=== PATIENT | male | born 1990 | race Caucasian/White ===

== ENCOUNTER 2018-08-10 14:04 | Emergency (ER) | payer MEDICAID ==
[~2018-08-10] VITALS: Ht 162.6 cm; Wt 64.7 kg
[2018-08-10 14:11] VITALS: BP 128/77; PULSE 68; RESP 16; Ht 162.6 cm; Wt 64.7 kg
[2018-08-10] MEDS ORDERED: KETOROLAC 30 MG INJ IM STA (16:24)
--- NOTE | 2018-08-10 16:42 | ERD ---
ER Documentation Chief Complaint Chief Complaint lower back pain x 3 days HPI Patient is a 28-year-old otherwise healthy Citizen [place] speaking male who presents to the ED with 4 days of right lower back pain. Patient states pain started when he was walking up the stairs and has been constant since then. Pain is describ ed as throbbing, nonradiating. He does report a history of lower back pain secondary to a lifting injury a few months ago. He states today's pain is similar however more intense. He has been doing physical therapy at home which seems to be improving his pain but does not take any medications. He denies any recent injury or fall to his back. Denies any saddle anesthesia. Denies any numbness, tingling, focal weakness of the bilateral extremities. Denies any loss of bowel or bladder control. Denies fever or chills. He is otherwise ambulatory without any other complaints. ROS All systems reviewed and are negative except as per history of present illness. Medications Home Meds Active Scripts Ibuprofen* (Ibuprofen*) 600 Mg Tablet, 600 MG PO Q6 for pain, #30 TAB Prov:FLORENCIO MOREJON PA-C 08/10/18 Discontinued Scripts Prednisone* (Prednisone*) 20 Mg Tab, 40 MG PO DAILY for 4 Days, TAB Prov:MANUEL ESCOBAR MD 08/10/18 Tramadol HCl (Tramadol HCl) 50 Mg Tablet, 50 MG PO Q4 PRN for PAIN, #20 TAB Prov:MANUEL ESCOBAR MD 08/10/18 Ibuprofen* (Motrin*) 600 Mg Tab, 600 MG PO Q6, #30 TAB Prov:MANUEL ESCOBAR MD 08/10/18 Allergies Allergies: Coded Allergies: No Known Allergy (Unverified , 08/10/18) PMhx/Soc Medical and Surgical Hx: pt denies Medical Hx, pt denies Surgical Hx Hx Alcohol Use: No Hx Substance Use: No Hx Tobacco Use: No Smoking Status: Never smoker Physical Exam Vitals Vital Signs Date Temp Pulse Resp B/P (MAP) Pulse Ox O2 O2 Flow FiO2 Time Delivery Rate 08/10/18 98.0 68 16 128/77 99 14:11 (94) Physical Exam Const: No acute distress Head: Atraumatic Neck: Full range of motion. No meningismus. Abd: Soft, non tender, non distended. Normal bowel sounds Skin: No petechiae or rashes Back: No midline or flank tenderness. + Right paraspinal thoracic tenderness. + Straight leg raise on the right. BLE reflexes 2+. Motor strength 5/5. Sensation is grossly intact. Ext: No cyanosis, or edema. Full ROM of all extremities. Neur: Awake and alert Psych: Normal Mood and Affect Results 24 hrs Current Medications Medications Dose Sig/Sen Start Time Status Last (Trade) Ordered Route PRN Stop Time Admin Dose Reason Admin Ketorolac 30 mg ONCE STAT 08/10/18 DC 08/10/18 Tromethamine IM 16:24 16:38 (Toradol) 08/10/18 16:25 Procedures/[facility] EMERGENT LABS AND DIAGNOSTIC STUDIES: Nursing Notes Reviewed. Previous Medical Records requested via the Electronic Health Record. EMERGENCY DEPARTMENT COURSE / MEDICAL DECISION MAKING: Patient is a 28-year-old male with history of back pain presents to the ED with exacerbation of his chronic back pain 4 days ago. Patient has no neurological deficits on physical exam. He was treated with IM Toradol with much improvement of his pain. Symptoms are likely musculoskeletal in nature. I recommended patient continue with physical therapy exercises at home, I also prescribed him ibuprofen 600 mg to take as needed for pain. Patient's history and physical mos t consistent with musculoskeletal injury therefore I did not think imaging was appropriate at this time. I have low suspicion for cauda equina, spinal cord injury, bony injury, or any other emergent process. He was discharged home with pain medication as discussed. I recommended he follow-up at a clinic in 2 days for reevaluation. Otherwise return to the ED for any new or worsening symptoms. Prior to discharge, patients vital signs have been reviewed SPECIALIST FOLLOW UP RECOMMENDED: None Patient has been advised to follow up with primary care in 1-2 days. Departure Diagnosis: Primary Impression: Low back strain Condition: Stable Patient Instructions: Back Sprain/Strain [facility] Additional Instructions: Thank you very much for allowing us to participate in your care. Your health and safety is our top priority at [facility]. Call your primary care doctor TOMORROW for an appointment during the next 2-4 days and bring all the information and medications prescribed. If the symptoms get worse and your provider is unavailable, return to the Emergency Department immediately. FLORENCIO MOREJON PA-C Aug 10, 2018 16:42
[2018-08-10] MEDS ORDERED: PRED20TA PO (17:03)
[2018-08-10] MEDS ORDERED: TRAM50TA2 PO (17:03)
[2018-08-10] MEDS ORDERED: IBUP-1542 PO ×2 (17:03→17:10)
== END 2018-08-10 17:15 | disposition home or self-care (01) ==
LOC: FTE 14:04
DX: S39.012A Strain of muscle, fascia and tendon of lower back, initial encounter (principal); X50.0XXA Overexertion from strenuous movement or load, initial encounter; Y92.9 Unspecified place or not applicable
CPT/HCPCS: 96372; J1885; Z7502